=== PATIENT | male | born 1965 | race Caucasian/White ===

== ENCOUNTER 2017-01-26 23:39 | Emergency (ER) | payer OTHER ==
[~2017-01-26] VITALS: Ht 185.4 cm; Wt 77.3 kg
[2017-01-26 23:56] LABS: GLUCOSE,POINT OF CARE 101 MG/DL (70-110)
[2017-01-26] MEDS ORDERED: INSNOV SQ (23:58)
[2017-01-26] MEDS ORDERED: LEVE250T55 PO (23:58)
[2017-01-26] MEDS ORDERED: CINA30 PO (23:58)
[2017-01-26] MEDS ORDERED: HYDR-309 PO (23:58)
[2017-01-26] MEDS ORDERED: DIPH25 PO (23:58)
[2017-01-26] MEDS ORDERED: HYDR25 PO (23:58)
[2017-01-26] MEDS ORDERED: LINA145C PO (23:58)
[2017-01-26] MEDS ORDERED: ONDA4 PO (23:58)
[2017-01-27 00:25] LABS: BASOPHILS # (AUTO) 0.07 K/uL (0.00-0.20); BASOPHILS % (AUTO) 0.7 % (0.0-2.0); EOSINOPHILS # (AUTO) 0.45 K/uL (0.00-0.70); HEMATOCRIT 34.1 % (41-53); HEMOGLOBIN 11.2 g/dL (13.5-17.5); LYMPHOCYTES % (AUTO) 10.5 % (22.0-44.0); MEAN CORPUSCULAR HEMOGLOBIN 29.7 pg (26.0-34.0); MEAN CORPUSCULAR HGB CONC 32.7 G/dL (31.0-37.0); MEAN CORPUSCULAR VOLUME 91 fL (80-100); MONOCYTES # (AUTO) 0.3 K/uL (0.1-1.0); MONOCYTES % (AUTO) 3.4 % (2.0-9.0); PLATELET COUNT (AUTO) 185 K/uL (150-450); RED BLOOD CELL COUNT(AUTO) 3.76 MIL/uL (4.50-5.90); RED CELL DISTRIBUTION WIDTH 14.7 % (11.5-14.5); WHITE BLOOD COUNT (AUTO) 9.9 K/uL (4.5-11.0)
[2017-01-27 00:42] LABS: CALCIUM, TOTAL 9.8 mg/dL (8.8-10.5); CREATININE 18.55 mg/dL (0.60-1.30)
[2017-01-27 00:48] LABS: ALBUMIN 4.3 g/dL (3.4-5.0); BILIRUBIN,TOTAL 0.5 mg/dL (0.1-1.0)
[2017-01-27 01:22] VITALS: BP 145/90
== END 2017-01-27 03:30 | disposition home or self-care (01) ==
LOC: EMS 23:40
DX: S50.12XA Contusion of left forearm, initial encounter (principal); E11.22 Type 2 diabetes mellitus with diabetic chronic kidney disease; I12.0 Hypertensive chronic kidney disease with stage 5 chronic kidney disease or end stage renal disease; N18.6 End stage renal disease; Z99.2 Dependence on renal dialysis; Z79.4 Long term (current) use of insulin; Z86.73 Personal history of transient ischemic attack (TIA), and cerebral infarction without residual deficits; Z79.82 Long term (current) use of aspirin; X58.XXXA Exposure to other specified factors, initial encounter; Y93.89 Activity, other specified; Y92.89 Other specified places as the place of occurrence of the external cause; Y99.8 Other external cause status
CPT/HCPCS: 82962; 93005; 99285

== ENCOUNTER 2018-01-09 14:48 | Inpatient (IN) | payer MEDICARE, OTHER ==
[~2018-01-09] VITALS: Ht 188 cm; Wt 79.6 kg
[~2018-01-09 14:48] MED LIST: CINA30 PO; DIPH25 PO; HYDR-309 PO; HYDR25TA84 PO; INSNOV SQ; LEVE250T55 PO; LINA145C PO; ONDA4 PO
[2018-01-09] MEDS ORDERED: OMEP20 PO (15:17)
[2018-01-09] MEDS ORDERED: GABA-531 PO (15:17)
[2018-01-09] MEDS ORDERED: METO5TAB95 PO (15:17)
[2018-01-09] MEDS ORDERED: ATOR40TA28 PO (15:17)
[2018-01-09] MEDS ORDERED: PERCT PO (15:17)
[2018-01-09] MEDS ORDERED: CLON-570 PO (15:17)
[2018-01-09] MEDS ORDERED: METO-558 PO (15:17)
[2018-01-09] MEDS ORDERED: SEVEC800 PO (15:17)
[2018-01-09 15:23] LABS: ABG A-A DIFF O2 55.4 mmHg (10-20.0); ABG BASE EXCESS 6.5 mmol/L (-2.0-3.0); ABG HCO3 29.7 mmol/L (22.0-26.0); ABG METHEMOGLOBIN 0.2 % (0.0-1.5); ABG OXYGEN SATURATION 98.7 % (95.0-98.0); ABG OXYHEMOGLOBIN 96.5 % (94.0-100.0); ABG PCO2 47 mmHg (35-45); ABG PH 7.432 (7.35-7.450); ABG TOTAL HEMOGLOBIN 11.6 G/dL (12.0-18.0); PO2, ARTERIAL BG 138.3 mmHg (84.0-92.0); SITE, BLOOD GAS LFT RADIAL; SOURCE, BLOOD GAS ARTERIAL; TEMPERATURE, FAHRENHEIT, BG 100.3 FAHREN (96.0-98.6)
[2018-01-09 15:24] LABS: O2 DEVICE,BLOOD GAS BIPAP (ROOM AIR)
[2018-01-09] MEDS ORDERED: ACETAMINOPHEN 1000 MG/ISO-OSM 100 ML IV ONE (15:30)
[2018-01-09] MEDS ORDERED: SODIUM CHLORIDE 0.9% 1,000 ML IV ONE ×2 (15:30→20:00)
[2018-01-09 15:34] LABS: BASOPHILS % (AUTO) 0.1 % (0.0-2.0); EOSINOPHILS % (AUTO) 0.1 % (1.0-6.0); HEMATOCRIT 36.9 % (41-53); HEMOGLOBIN 11.8 g/dL (13.5-17.5); LYMPHOCYTES # (AUTO) 0.3 K/uL (1.0-4.8); LYMPHOCYTES % (AUTO) 2.3 % (22.0-44.0); MEAN CORPUSCULAR HEMOGLOBIN 29.1 pg (26.0-34.0); MEAN CORPUSCULAR VOLUME 91 fL (80-100); MONOCYTES # (AUTO) 0.4 K/uL (0.1-1.0); MONOCYTES % (AUTO) 3.1 % (2.0-9.0); NEUTROPHILS # (AUTO) 13.5 K/uL (1.8-7.7); PLATELET COUNT (AUTO) 276 K/uL (150-450); RED BLOOD CELL COUNT(AUTO) 4.06 MIL/uL (4.50-5.90); RED CELL DISTRIBUTION WIDTH 15.1 % (11.5-14.5)
[2018-01-09 15:35] LABS: NEUTROPHILS % (AUTO) 94.4 % (40.0-70.0)
[2018-01-09 15:38] LABS: ANION GAP 14 mmol/L (8-16); CARBON DIOXIDE 32 mmol/L (22-29); CHLORIDE 95 mmol/L (98-107); GLOMERULAR FILTR. RATE CALC 4 mL/min (>60); GLUCOSE,RANDOM 170 mg/dL (70-110); POTASSIUM 3.6 mmol/L (3.5-5.1); SODIUM SERUM 141 mmol/L (136-145); UREA NITROGEN, BLOOD 29 mg/dL (7-18)
[2018-01-09 15:48] LABS: LACTIC ACID 3.2 mmol/L (0.4-2.0)
[2018-01-09 15:49] LABS: PROTHROMBIN TIME 10.8 SEC (9.4-11.6)
[2018-01-09 15:57] LABS: B-TYPE NATRIURETIC PEPTIDE 1160 pg/mL (0-100)
[2018-01-09] MEDS ORDERED: CefTRIAXone SODIUM 1 GM in DEXTROSE 5%-WATER 10 ML IV ONE (16:00)
[2018-01-09] MEDS ORDERED: NALOXONE HCL 1 MG/ML 2 ML SYG IVP ONE ×2 (16:00→17:45)
[2018-01-09] MEDS ORDERED: AZITHROMYCIN 500 MG/NS 250 ML IV ONE (16:00)
[2018-01-09] MEDS ORDERED: NALOXONE HCL 1 MG/ML 2 ML SYG ONE (16:00)
[2018-01-09 16:01] LABS: ALANINE AMINOTRANSFERASE 17 U/L (12-78); ALBUMIN 3.7 g/dL (3.4-5.0); ALKALINE PHOSPHATASE 245 U/L (46-116); ASPARTATE AMINOTRANSFERASE 15 U/L (15-37); BILIRUBIN,TOTAL 0.5 mg/dL (0.1-1.0); CREATINE KINASE MB 1.2 ng/mL (0-5); CREATINE KINASE, TOTAL 266 U/L (39-308); LIPASE 46 U/L (73-393); TOTAL PROTEIN, SERUM 8.6 g/dL (6.4-8.2)
[2018-01-09 16:22] LABS: GLUCOSE,POINT OF CARE 180 MG/DL (70-110)
[2018-01-09 16:41] LABS: APPEARANCE,URINE CLOUDY (CLEAR); BILIRUBIN,URINE NEGATIVE (NEGATIVE); GLUCOSE, URINE (UA) 100 mg/dL (NEGATIVE); KETONES,URINE NEGATIVE (NEGATIVE); LEUKOCYTE ESTERASE ,URINE NEGATIVE (NEGATIVE); NITRATE,URINE NEGATIVE (NEGATIVE); OCCULT BLOOD,URINE SMALL (NEGATIVE); PROTEIN,URINE SEE CONFIRM (NEGATIVE); UROBILINOGEN,URINE 0.2 mg/dL (<=1.0)
[2018-01-09 16:45] LABS: AMPHET/METH SCREEN,URINE NEGATIVE (NEGATIVE); BARBITURATE SCREEN, URINE NEGATIVE (NEGATIVE); BENZODIAZEPINES SCREEN,URINE NEGATIVE (NEGATIVE); CANNABINOID SCREEN,URINE NEGATIVE (NEGATIVE); COCAINE SCREEN,URINE NEGATIVE (NEGATIVE); METHADONE SCREEN, URINE NEGATIVE (NEGATIVE); OPIATE SCREEN,URINE POSITIVE (NEGATIVE); PHENCYCLIDINE SCREEN,URINE NEGATIVE (NEGATIVE)
[2018-01-09 17:12] LABS: SULFOSALICYLIC ACID,URINE 3+ (Negative)
[2018-01-09 17:14] LABS: BACTERIA,URINE None Seen /HPF (None Seen); RBC,URINE 0-2 /HPF (0-2)
[2018-01-09] MEDS ORDERED: MORP15T PO (17:17)
[2018-01-09 17:33] LABS: ABG A-A DIFF O2 99.6 mmHg (10-20.0); ABG BASE EXCESS 6.3 mmol/L (-2.0-3.0); ABG CARBOXYHEMOGLOBIN 2.3 % (0.0-1.5); ABG HCO3 29.5 mmol/L (22.0-26.0); ABG METHEMOGLOBIN 0.2 % (0.0-1.5); ABG OXYGEN SATURATION 96.9 % (95.0-98.0); ABG OXYHEMOGLOBIN 94.5 % (94.0-100.0); ABG PCO2 50 mmHg (35-45); ABG PH 7.412 (7.35-7.450); ABG TOTAL HEMOGLOBIN 11.2 G/dL (12.0-18.0); O2 DEVICE,BLOOD GAS CANNULA (ROOM AIR); SITE, BLOOD GAS LFT RADIAL; SOURCE, BLOOD GAS ARTERIAL; TEMPERATURE, FAHRENHEIT, BG 100.9 FAHREN (96.0-98.6)
[2018-01-09 19:31] LABS: ACETAMINOPHEN < 2 mcg/mL (10-30)
[2018-01-09 19:35] LABS: SALICYLATE 2.9 mg/dL (2.8-20.0)
[2018-01-09] MEDS ORDERED: ACETAMINOPHEN 325 MG TABLET PO PRN ×2 (19:45→21:00)
[2018-01-09] MEDS ORDERED: 0.9% SODIUM CHLORIDE 10 ML SYRINGE IVP PRN (19:45)
[2018-01-09 20:52] VITALS: BP 134/89
[2018-01-09] MEDS ORDERED: DEXTROSE 5%-0.45% SODIUM CHL 500 ML IV ONE (21:00)
[2018-01-09] MEDS ORDERED: ALBUTEROL SULFATE 2.5 MG/0.5 ML NEB SOLUTION NEB PRN (21:00)
[2018-01-09] MEDS ORDERED: DEXTROSE 50%-WATER 25 GM/50 ML SYRINGE IVP PRN (21:00)
[2018-01-09] MEDS ORDERED: MAGNESIUM HYDROXIDE SUSPENSION 30 ML UDCUP PO PRN (21:00)
[2018-01-09] MEDS ORDERED: ONDANSETRON HCL 4 MG/2 ML VIAL IVP PRN (21:00)
[2018-01-09] MEDS ORDERED: INSULIN REGULAR, HUMAN 100 UNITS/ML SQ PRN (21:00)
[2018-01-09] MEDS: DOCUSATE SODIUM 100 MG CAPSULE PO SCH (21:58)
[2018-01-09] MEDS: HEPARIN SODIUM,PORCINE 5,000 UNITS/ML VIAL SQ SCH (21:58)
[2018-01-10] VITALS (7 sets, daily range): BP systolic 113–134; BP diastolic 60–87
[2018-01-10 00:03] LABS: GLUCOMETER DEV NAME(LOC) 5N 2S; GLUCOSE,POINT OF CARE 91 MG/DL (70-110)
[2018-01-10] MEDS: HEPARIN SODIUM,PORCINE 5,000 UNITS/ML VIAL SQ SCH ×2 (08:23→20:11)
[2018-01-10] MEDS: DOCUSATE SODIUM 100 MG CAPSULE PO SCH ×2 (08:23→20:13)
[2018-01-10] MEDS: ASPIRIN 81 MG CHEWABLE TABLET PEG SCH (08:23)
[2018-01-10] MEDS ORDERED: PANTOPRAZOLE SODIUM 40 MG/VIAL IVP SCH (09:00)
[2018-01-10 09:26] LABS: BASOPHILS % (AUTO) 0.9 % (0.0-2.0); EOSINOPHILS % (AUTO) 3.1 % (1.0-6.0); HEMATOCRIT 32.5 % (41-53); HEMOGLOBIN 10.3 g/dL (13.5-17.5); LYMPHOCYTES # (AUTO) 1.9 K/uL (1.0-4.8); MEAN CORPUSCULAR HEMOGLOBIN 28.9 pg (26.0-34.0); MEAN CORPUSCULAR HGB CONC 31.7 G/dL (31.0-37.0); MEAN CORPUSCULAR VOLUME 91 fL (80-100); MONOCYTES % (AUTO) 6.8 % (2.0-9.0); NEUTROPHILS # (AUTO) 11.4 K/uL (1.8-7.7); NEUTROPHILS % (AUTO) 76.2 % (40.0-70.0); PLATELET COUNT (AUTO) 263 K/uL (150-450); RED BLOOD CELL COUNT(AUTO) 3.57 MIL/uL (4.50-5.90); RED CELL DISTRIBUTION WIDTH 14.9 % (11.5-14.5)
[2018-01-10 09:43] LABS: ALBUMIN 3.2 g/dL (3.4-5.0); BILIRUBIN,TOTAL 0.4 mg/dL (0.1-1.0); CALCIUM, TOTAL 9.1 mg/dL (8.8-10.5); CREATININE 13.71 mg/dL (0.60-1.30); POTASSIUM 3.4 mmol/L (3.5-5.1); TOTAL PROTEIN, SERUM 7.6 g/dL (6.4-8.2)
[2018-01-10] MEDS: VITAMIN B COMP/VIT C/FOLIC ACID CAPSULE PO SCH (10:45)
[2018-01-10] MEDS ORDERED: LIDOCAINE HCL/PF 1% 2 ML VIAL INJ ONE (12:00)
[2018-01-10] MEDS: SEVELAMER CARBONATE 800 MG TABLET PO SCH ×2 (12:00→18:05)
[2018-01-10 15:03] LABS: GLUCOMETER DEV NAME(LOC) 5N 2S; GLUCOSE,POINT OF CARE 115 MG/DL (70-110)
[2018-01-10 15:07] LABS: GLUCOMETER DEV NAME(LOC) 5S 2N; GLUCOSE,POINT OF CARE 88 MG/DL (70-110)
[2018-01-10] MEDS: CefTRIAXone SODIUM 1 GM in DEXTROSE 5%-WATER 10 ML IV SCH (15:29)
[2018-01-10] MEDS: ONDANSETRON HCL 4 MG TABLET PO SCH (17:58)
[2018-01-10] MEDS ORDERED: SEVELAMER CARBONATE 800 MG TABLET PO SCH (18:00)
[2018-01-10] MEDS: CINACALCET HCL 30 MG TABLET PO SCH (18:05)
[2018-01-10] MEDS ORDERED: MANNITOL 25%-12.5 GM/50 ML VIAL IVP PRN (18:15)
[2018-01-10] MEDS ORDERED: LIDOCAINE HCL/PF 1% 2 ML VIAL ID PRN (19:00)
[2018-01-10] MEDS: OxyCODONE HCL/ACETAMINOPHEN 5-325 MG TABLET PO PRN (20:12)
[2018-01-10] MEDS: GABAPENTIN 300 MG CAPSULE PO SCH (20:12)
[2018-01-10] MEDS: HydrALAZINE HCL 25 MG TABLET PO SCH (20:13)
[2018-01-10] MEDS: CloNIDine HCL 0.1 MG TABLET PO SCH (20:13)
[2018-01-10] MEDS: LevETIRAcetam 500 MG TABLET PO SCH (20:13)
[2018-01-10] MEDS: ATORVASTATIN CALCIUM 40 MG TABLET PO SCH (20:13)
[2018-01-10] MEDS: METOCLOPRAMIDE HCL 5 MG TABLET PO SCH (20:13)
[2018-01-10] MEDS ORDERED: ATORVASTATIN CALCIUM 20 MG TABLET PEG SCH (21:00)
[2018-01-11 00:37] LABS: GLUCOMETER DEV NAME(LOC) 5S 2N; GLUCOSE,POINT OF CARE 77 MG/DL (70-110)
[2018-01-11 03:27] LABS: GLUCOMETER DEV NAME(LOC) 5N 2S; GLUCOSE,POINT OF CARE 86 MG/DL (70-110)
[2018-01-11 05:13] VITALS: BP 137/78
[2018-01-11] MEDS: OxyCODONE HCL/ACETAMINOPHEN 5-325 MG TABLET PO PRN ×5 (06:06→20:31)
[2018-01-11] MEDS: ONDANSETRON HCL 4 MG TABLET PO SCH ×4 (06:06→18:21)
[2018-01-11] MEDS: BISACODYL 10 MG RECTAL RECTAL SUPPOSITORY PR PRN (06:44)
[2018-01-11 06:54] VITALS: BP 136/74
[2018-01-11 07:32] LABS: GLUCOMETER DEV NAME(LOC) 5N 2S; GLUCOSE,POINT OF CARE 91 MG/DL (70-110)
[2018-01-11] MEDS: OXYGEN THERAPY IH SCH ×3 (08:30→20:31)
[2018-01-11] MEDS: SEVELAMER CARBONATE 800 MG TABLET PO SCH ×3 (08:31→18:22)
[2018-01-11] MEDS: DOCUSATE SODIUM 100 MG CAPSULE PO SCH ×2 (08:31→20:31)
[2018-01-11] MEDS: ASPIRIN 81 MG CHEWABLE TABLET PEG SCH (08:32)
[2018-01-11] MEDS: HydrALAZINE HCL 25 MG TABLET PO SCH ×2 (08:32→21:00)
[2018-01-11] MEDS: GABAPENTIN 300 MG CAPSULE PO SCH ×3 (08:32→20:30)
[2018-01-11] MEDS: OMEPRAZOLE 20 MG CAPSULE PO SCH (08:32)
[2018-01-11] MEDS: LevETIRAcetam 500 MG TABLET PO SCH ×2 (08:32→20:31)
[2018-01-11] MEDS: CINACALCET HCL 30 MG TABLET PO SCH ×2 (08:34→18:22)
[2018-01-11] MEDS: CloNIDine HCL 0.1 MG TABLET PO SCH ×3 (08:34→20:31)
[2018-01-11] MEDS: VITAMIN B COMP/VIT C/FOLIC ACID CAPSULE PO SCH (08:35)
[2018-01-11] MEDS: HEPARIN SODIUM,PORCINE 5,000 UNITS/ML VIAL SQ SCH ×2 (08:35→20:31)
[2018-01-11] MEDS: METOCLOPRAMIDE HCL 5 MG TABLET PO SCH ×3 (08:38→20:30)
[2018-01-11] MEDS: METOPROLOL SUCCINATE 50 MG ER TABLET PO SCH (08:39)
[2018-01-11] MEDS ORDERED: LevETIRAcetam 250 MG TABLET PO SCH (09:00)
[2018-01-11 11:33] VITALS: BP 134/81
[2018-01-11 14:13] LABS: GLUCOMETER DEV NAME(LOC) 5S 2N; GLUCOSE,POINT OF CARE 103 MG/DL (70-110)
[2018-01-11 14:57] VITALS: BP 126/72
[2018-01-11] MEDS: CefTRIAXone SODIUM 1 GM in DEXTROSE 5%-WATER 10 ML IV SCH (16:20)
[2018-01-11] MEDS ORDERED: INSULIN LISPRO 100 UNITS/ML SQ PRN (18:00)
[2018-01-11] MEDS ORDERED: DEXTROSE 50%-WATER 25 GM/50 ML SYRINGE IVP PRN (18:00)
[2018-01-11] MEDS ORDERED: SODIUM CHLORIDE 0.9% 250 ML IV ONE (18:49)
[2018-01-11] MEDS: AZITHROMYCIN 500 MG/NS 250 ML IV SCH (18:52)
[2018-01-11 20:20] VITALS: BP 108/70
[2018-01-11] MEDS: ATORVASTATIN CALCIUM 40 MG TABLET PO SCH (20:31)
[2018-01-12 00:22] VITALS: BP 101/67
[2018-01-12] MEDS: ONDANSETRON HCL 4 MG TABLET PO SCH ×5 (01:02→23:25)
[2018-01-12] MEDS: OxyCODONE HCL/ACETAMINOPHEN 5-325 MG TABLET PO PRN ×3 (01:03→20:09)
[2018-01-12 01:48] LABS: GLUCOMETER DEV NAME(LOC) 5S 2N; GLUCOSE,POINT OF CARE 87 MG/DL (70-110)
[2018-01-12 01:48] LABS: GLUCOMETER DEV NAME(LOC) 5S 2N; GLUCOSE,POINT OF CARE 84 MG/DL (70-110)
[2018-01-12 04:34] VITALS: BP 117/74
[2018-01-12 07:03] LABS: GLUCOMETER DEV NAME(LOC) 5S 2N; GLUCOSE,POINT OF CARE 74 MG/DL (70-110)
[2018-01-12 07:27] VITALS: BP 96/73
[2018-01-12 07:54] LABS: BASOPHILS % (AUTO) 2.1 % (0.0-2.0); EOSINOPHILS % (AUTO) 6.9 % (1.0-6.0); HEMATOCRIT 26.9 % (41-53); HEMOGLOBIN 8.8 g/dL (13.5-17.5); LYMPHOCYTES # (AUTO) 2.5 K/uL (1.0-4.8); LYMPHOCYTES % (AUTO) 18.8 % (22.0-44.0); MEAN CORPUSCULAR HEMOGLOBIN 29.6 pg (26.0-34.0); MEAN CORPUSCULAR HGB CONC 32.9 G/dL (31.0-37.0); MEAN CORPUSCULAR VOLUME 90 fL (80-100); MONOCYTES # (AUTO) 0.6 K/uL (0.1-1.0); MONOCYTES % (AUTO) 4.4 % (2.0-9.0); NEUTROPHILS # (AUTO) 9.2 K/uL (1.8-7.7); NEUTROPHILS % (AUTO) 67.8 % (40.0-70.0); PLATELET COUNT (AUTO) 275 K/uL (150-450); RED BLOOD CELL COUNT(AUTO) 2.98 MIL/uL (4.50-5.90); RED CELL DISTRIBUTION WIDTH 14.5 % (11.5-14.5)
[2018-01-12] MEDS: GABAPENTIN 300 MG CAPSULE PO SCH ×3 (07:55→20:09)
[2018-01-12] MEDS: LevETIRAcetam 500 MG TABLET PO SCH ×2 (07:55→20:09)
[2018-01-12] MEDS: SEVELAMER CARBONATE 800 MG TABLET PO SCH ×3 (08:00→18:00)
[2018-01-12] MEDS: OXYGEN THERAPY IH SCH ×2 (08:00→20:00)
[2018-01-12] MEDS: CINACALCET HCL 30 MG TABLET PO SCH ×2 (08:00→18:00)
[2018-01-12 08:30] LABS: ALBUMIN 2.8 g/dL (3.4-5.0); BILIRUBIN,TOTAL 0.4 mg/dL (0.1-1.0); CALCIUM, TOTAL 7.7 mg/dL (8.8-10.5); CREATININE 10.13 mg/dL (0.60-1.30); PHOSPHORUS 3.1 mg/dL (2.5-4.9); POTASSIUM 3.4 mmol/L (3.5-5.1); TOTAL PROTEIN, SERUM 6.9 g/dL (6.4-8.2)
[2018-01-12] MEDS: DOCUSATE SODIUM 100 MG CAPSULE PO SCH ×2 (09:00→20:09)
[2018-01-12] MEDS: METOCLOPRAMIDE HCL 5 MG TABLET PO SCH ×3 (09:00→20:09)
[2018-01-12] MEDS: HEPARIN SODIUM,PORCINE 5,000 UNITS/ML VIAL SQ SCH ×2 (09:00→20:09)
[2018-01-12] MEDS: VITAMIN B COMP/VIT C/FOLIC ACID CAPSULE PO SCH (09:00)
[2018-01-12] MEDS: HydrALAZINE HCL 25 MG TABLET PO SCH ×2 (09:00→21:00)
[2018-01-12] MEDS: METOPROLOL SUCCINATE 50 MG ER TABLET PO SCH (09:00)
[2018-01-12] MEDS: CloNIDine HCL 0.1 MG TABLET PO SCH ×3 (09:00→20:09)
[2018-01-12] MEDS: OMEPRAZOLE 20 MG CAPSULE PO SCH (09:00)
[2018-01-12] MEDS: ASPIRIN 81 MG CHEWABLE TABLET PEG SCH (09:00)
[2018-01-12] MEDS ORDERED: SODIUM CHLORIDE 0.9% 2,000 ML IV ONE (10:48)
[2018-01-12 11:40] VITALS: BP 117/69
[2018-01-12] MEDS: TraMADol HCL 50 MG TABLET PO PRN ×2 (12:00→23:25)
[2018-01-12 14:23] LABS: GLUCOMETER DEV NAME(LOC) 5S 2N; GLUCOSE,POINT OF CARE 72 MG/DL (70-110)
[2018-01-12] MEDS ORDERED: LIDOCAINE HCL/PF 1% 2 ML VIAL ONE (14:45)
[2018-01-12 15:46] VITALS: BP 122/64
[2018-01-12] MEDS: CefTRIAXone SODIUM 1 GM in DEXTROSE 5%-WATER 10 ML IV SCH (16:36)
[2018-01-12] MEDS ORDERED: IOVERSOL 320 MG/ML 100 ML VIAL ONE (18:05)
[2018-01-12] MEDS: AZITHROMYCIN 500 MG/NS 250 ML IV SCH (18:33)
[2018-01-12] MEDS: ATORVASTATIN CALCIUM 40 MG TABLET PO SCH (20:09)
[2018-01-12 20:18] VITALS: BP 110/68
[2018-01-13 00:26] VITALS: BP 135/78
[2018-01-13] MEDS: OxyCODONE HCL/ACETAMINOPHEN 5-325 MG TABLET PO PRN ×5 (01:38→21:59)
[2018-01-13 03:54] VITALS: BP 126/80
[2018-01-13] MEDS: ONDANSETRON HCL 4 MG TABLET PO SCH ×3 (05:42→17:49)
[2018-01-13 06:35] LABS: BASOPHILS % (AUTO) 2.1 % (0.0-2.0); EOSINOPHILS % (AUTO) 10.4 % (1.0-6.0); HEMATOCRIT 31.3 % (41-53); HEMOGLOBIN 10.3 g/dL (13.5-17.5); LYMPHOCYTES # (AUTO) 1.7 K/uL (1.0-4.8); LYMPHOCYTES % (AUTO) 16.7 % (22.0-44.0); MEAN CORPUSCULAR HEMOGLOBIN 29.8 pg (26.0-34.0); MEAN CORPUSCULAR VOLUME 90 fL (80-100); MONOCYTES # (AUTO) 0.9 K/uL (0.1-1.0); MONOCYTES % (AUTO) 8.7 % (2.0-9.0); NEUTROPHILS # (AUTO) 6.3 K/uL (1.8-7.7); NEUTROPHILS % (AUTO) 62.1 % (40.0-70.0); PLATELET COUNT (AUTO) 263 K/uL (150-450); RED BLOOD CELL COUNT(AUTO) 3.47 MIL/uL (4.50-5.90); RED CELL DISTRIBUTION WIDTH 14.7 % (11.5-14.5)
[2018-01-13 07:10] LABS: ALBUMIN 2.8 g/dL (3.4-5.0); BILIRUBIN,TOTAL 0.3 mg/dL (0.1-1.0); CALCIUM, TOTAL 8.3 mg/dL (8.8-10.5); CREATININE 8.33 mg/dL (0.60-1.30); POTASSIUM 3.8 mmol/L (3.5-5.1)
[2018-01-13 07:50] VITALS: BP 120/68
[2018-01-13] MEDS: SEVELAMER CARBONATE 800 MG TABLET PO SCH ×3 (08:00→18:00)
[2018-01-13] MEDS: CINACALCET HCL 30 MG TABLET PO SCH ×2 (08:00→18:00)
[2018-01-13] MEDS ORDERED: SODIUM CHLORIDE 0.9% 2,000 ML IV ONE (08:12)
[2018-01-13] MEDS: HydrALAZINE HCL 25 MG TABLET PO SCH ×2 (09:00→21:00)
[2018-01-13] MEDS: DOCUSATE SODIUM 100 MG CAPSULE PO SCH ×2 (09:00→20:19)
[2018-01-13] MEDS: VITAMIN B COMP/VIT C/FOLIC ACID CAPSULE PO SCH (09:00)
[2018-01-13] MEDS: CloNIDine HCL 0.1 MG TABLET PO SCH ×3 (09:00→20:19)
[2018-01-13] MEDS: ASPIRIN 81 MG CHEWABLE TABLET PEG SCH (09:00)
[2018-01-13] MEDS: HEPARIN SODIUM,PORCINE 5,000 UNITS/ML VIAL SQ SCH ×2 (09:00→20:20)
[2018-01-13] MEDS: METOPROLOL SUCCINATE 50 MG ER TABLET PO SCH (09:00)
[2018-01-13] MEDS: METOCLOPRAMIDE HCL 5 MG TABLET PO SCH ×3 (09:27→21:58)
[2018-01-13] MEDS: LevETIRAcetam 500 MG TABLET PO SCH ×2 (09:28→20:19)
[2018-01-13] MEDS: TraMADol HCL 50 MG TABLET PO PRN ×2 (09:28→20:19)
[2018-01-13] MEDS: OMEPRAZOLE 20 MG CAPSULE PO SCH (09:29)
[2018-01-13] MEDS: GABAPENTIN 300 MG CAPSULE PO SCH ×3 (09:29→20:19)
[2018-01-13] MEDS: OXYGEN THERAPY IH SCH (09:30)
[2018-01-13 11:04] VITALS: BP 162/85
[2018-01-13] MEDS: LACTULOSE 20 GM/30 ML SOLUTION UDCUP PO SCH ×2 (11:34→20:19)
[2018-01-13 11:38] LABS: GLUCOMETER DEV NAME(LOC) 5S 2N; GLUCOSE,POINT OF CARE 78 MG/DL (70-110)
[2018-01-13 11:38] LABS: GLUCOMETER DEV NAME(LOC) 5S 2N; GLUCOSE,POINT OF CARE 72 MG/DL (70-110)
[2018-01-13 11:38] LABS: GLUCOMETER DEV NAME(LOC) 5S 2N; GLUCOSE,POINT OF CARE 74 MG/DL (70-110)
[2018-01-13 11:38] LABS: GLUCOMETER DEV NAME(LOC) 5S 2N; GLUCOSE,POINT OF CARE 63 MG/DL (70-110)
[2018-01-13 11:58] LABS: GLUCOMETER DEV NAME(LOC) 5S 1M; GLUCOSE,POINT OF CARE 108 MG/DL (70-110)
[2018-01-13 15:52] VITALS: BP 99/76
[2018-01-13] MEDS: CefTRIAXone SODIUM 1 GM in DEXTROSE 5%-WATER 10 ML IV SCH (16:29)
[2018-01-13] MEDS: BISACODYL 10 MG RECTAL RECTAL SUPPOSITORY PR PRN (17:49)
[2018-01-13] MEDS: AZITHROMYCIN 500 MG/NS 250 ML IV SCH (17:58)
[2018-01-13 19:38] VITALS: BP 110/88
[2018-01-13] MEDS: ATORVASTATIN CALCIUM 40 MG TABLET PO SCH (21:58)
[2018-01-14 00:24] VITALS: BP 104/70
[2018-01-14 04:15] VITALS: BP 114/92
[2018-01-14] MEDS: ONDANSETRON HCL 4 MG TABLET PO SCH ×3 (05:49→12:00)
[2018-01-14] MEDS: OxyCODONE HCL/ACETAMINOPHEN 5-325 MG TABLET PO PRN (05:49)
[2018-01-14] MEDS ORDERED: LIDOCAINE HCL/PF 1% 2 ML VIAL IM ONE (07:10)
[2018-01-14 07:27] VITALS: BP 101/63
[2018-01-14 07:27] LABS: GLUCOMETER DEV NAME(LOC) 5N 1P; GLUCOSE,POINT OF CARE 116 MG/DL (70-110)
[2018-01-14 07:27] LABS: GLUCOMETER DEV NAME(LOC) 5N 1P; GLUCOSE,POINT OF CARE 101 MG/DL (70-110)
[2018-01-14 07:27] LABS: GLUCOMETER DEV NAME(LOC) 5N 2S; GLUCOSE,POINT OF CARE 108 MG/DL (70-110)
[2018-01-14] MEDS: CINACALCET HCL 30 MG TABLET PO SCH (08:00)
[2018-01-14] MEDS: SEVELAMER CARBONATE 800 MG TABLET PO SCH ×2 (08:00→12:00)
[2018-01-14] MEDS: HEPARIN SODIUM,PORCINE 5,000 UNITS/ML VIAL SQ SCH (08:27)
[2018-01-14] MEDS: LevETIRAcetam 500 MG TABLET PO SCH (08:27)
[2018-01-14] MEDS: DOCUSATE SODIUM 100 MG CAPSULE PO SCH (08:27)
[2018-01-14] MEDS: ASPIRIN 81 MG CHEWABLE TABLET PEG SCH (08:27)
[2018-01-14] MEDS: GABAPENTIN 300 MG CAPSULE PO SCH (08:27)
[2018-01-14] MEDS: METOCLOPRAMIDE HCL 5 MG TABLET PO SCH (08:27)
[2018-01-14] MEDS: OMEPRAZOLE 20 MG CAPSULE PO SCH (08:27)
[2018-01-14 08:52] LABS: BASOPHILS % (AUTO) 0.5 % (0.0-2.0); EOSINOPHILS % (AUTO) 7.8 % (1.0-6.0); HEMOGLOBIN 10.9 g/dL (13.5-17.5); LYMPHOCYTES # (AUTO) 2.7 K/uL (1.0-4.8); LYMPHOCYTES % (AUTO) 21.4 % (22.0-44.0); MEAN CORPUSCULAR HGB CONC 32.1 G/dL (31.0-37.0); MEAN CORPUSCULAR VOLUME 91 fL (80-100); MONOCYTES # (AUTO) 1.1 K/uL (0.1-1.0); MONOCYTES % (AUTO) 8.7 % (2.0-9.0); NEUTROPHILS # (AUTO) 7.8 K/uL (1.8-7.7); NEUTROPHILS % (AUTO) 61.6 % (40.0-70.0); PLATELET COUNT (AUTO) 269 K/uL (150-450); RED BLOOD CELL COUNT(AUTO) 3.76 MIL/uL (4.50-5.90); RED CELL DISTRIBUTION WIDTH 15.1 % (11.5-14.5)
[2018-01-14] MEDS: HydrALAZINE HCL 25 MG TABLET PO SCH (09:00)
[2018-01-14] MEDS: CloNIDine HCL 0.1 MG TABLET PO SCH (09:00)
[2018-01-14] MEDS: METOPROLOL SUCCINATE 50 MG ER TABLET PO SCH (09:00)
[2018-01-14] MEDS: LACTULOSE 20 GM/30 ML SOLUTION UDCUP PO SCH (09:00)
[2018-01-14] MEDS: VITAMIN B COMP/VIT C/FOLIC ACID CAPSULE PO SCH (09:00)
[2018-01-14 09:16] LABS: ALBUMIN 2.8 g/dL (3.4-5.0); BILIRUBIN,TOTAL 0.2 mg/dL (0.1-1.0); CALCIUM, TOTAL 8.8 mg/dL (8.8-10.5); CREATININE 7.23 mg/dL (0.60-1.30); POTASSIUM 3.6 mmol/L (3.5-5.1); TOTAL PROTEIN, SERUM 7.2 g/dL (6.4-8.2)
[2018-01-14 11:47] VITALS: BP 97/68
[2018-01-14 12:33] LABS: GLUCOMETER DEV NAME(LOC) 5N 1P; GLUCOSE,POINT OF CARE 112 MG/DL (70-110)
== END 2018-01-14 14:50 | DRG 871 ==
LOC: EMS 14:49 → 5N 18:39
PROVIDERS: ADMIT Internal Medicine; ATTEND Internal Medicine
PROC: 5A1D70Z Performance of Urinary Filtration, Intermittent, Less than 6 Hours Per Day (ICD-10-PCS; principal; 2018-01-10)
PROC: 5A1D70Z Performance of Urinary Filtration, Intermittent, Less than 6 Hours Per Day (ICD-10-PCS; 2018-01-12)
PROC: 5A1D70Z Performance of Urinary Filtration, Intermittent, Less than 6 Hours Per Day (ICD-10-PCS; 2018-01-13)
DX: A41.9 Sepsis, unspecified organism (principal); G92 Toxic encephalopathy; J18.9 Pneumonia, unspecified organism; I12.0 Hypertensive chronic kidney disease with stage 5 chronic kidney disease or end stage renal disease; E10.22 Type 1 diabetes mellitus with diabetic chronic kidney disease; E10.51 Type 1 diabetes mellitus with diabetic peripheral angiopathy without gangrene; I48.0 Paroxysmal atrial fibrillation; N18.6 End stage renal disease; G81.91 Hemiplegia, unspecified affecting right dominant side; K31.84 Gastroparesis; E10.43 Type 1 diabetes mellitus with diabetic autonomic (poly)neuropathy; G40.909 Epilepsy, unspecified, not intractable, without status epilepticus; D64.9 Anemia, unspecified; E78.5 Hyperlipidemia, unspecified; K59.00 Constipation, unspecified; Z82.49 Family history of ischemic heart disease and other diseases of the circulatory system; Z86.73 Personal history of transient ischemic attack (TIA), and cerebral infarction without residual deficits; Z93.1 Gastrostomy status; Z99.2 Dependence on renal dialysis; Z91.030 Bee allergy status
CPT/HCPCS: 70450; 74177; 82805; 82962; 83605; 83735; 84100; 87040; 87081; 87340; 90935; 93005; 94640; 94660; 96365; 96366; 96375; 97110; 97163; 97530; 99291; C9113; G0480; G0481; J0131; J0456; J0696; J1644; J2310; J3490; J7030; J7050; J7060; Q0162